=== PATIENT | male | born 1990 | race Asian ===

== ENCOUNTER 2018-01-16 13:29 | Emergency (ER) | payer OTHER | END 2018-01-16 16:20 | disposition home or self-care (01) | LOC: M ED 13:29 | DX: L23.7 Allergic contact dermatitis due to plants, except food (principal); Z79.2 Long term (current) use of antibiotics | CPT/HCPCS: 99283 ==

== ENCOUNTER → 2018-03-28 | Outpatient (CLI) | payer OTHER ==
[~2018-03-28] MED LIST: CONRAY-43 43% 50ML VIAL (Q9960) As Ordered; LIDOCAINE 1% MDV 20ML VIAL As Ordered; TRIAMCINOLONE ACETONIDE SUSP 40 MG/ML VIAL (J3301) As Ordered
== END ==
LOC: M RADPRO 10:48
DX: M25.551 Pain in right hip (principal)
CPT/HCPCS: 20610

== ENCOUNTER → 2018-04-11 | Outpatient (CLI) | payer OTHER ==
[~2018-04-11] MED LIST changes: -LIDOCAINE 1% MDV 20ML VIAL As Ordered; +PROHANCE 279.3MG/ML 5ML VIAL (A9576) As Ordered; -TRIAMCINOLONE ACETONIDE SUSP 40 MG/ML VIAL (J3301) As Ordered
== END ==
LOC: M RADPRO 06:31
DX: S73.191A Other sprain of right hip, initial encounter (principal); Y92.89 Other specified places as the place of occurrence of the external cause; Y93.89 Activity, other specified; Y99.8 Other external cause status; Z79.899 Other long term (current) drug therapy
CPT/HCPCS: 27093